=== PATIENT | female | born 1965 | race Native Hawaiian/Other Pacific Islander ===

== ENCOUNTER 2018-02-18 15:11 | Emergency (ER) | payer OTHER ==
[~2018-02-18] VITALS: Ht 162.6 cm; Wt 54.4 kg
[2018-02-18 15:44] LABS: PLATELET COUNT 218 K/uL (152-353)
[2018-02-18 15:54] LABS: POTASSIUM 3.7 mmol/L (3.6-5.2); SODIUM 139 mmol/L (136-145)
[2018-02-18 17:06] VITALS: BP 176/74; TEMP 97.3
== END 2018-02-18 17:15 | disposition home or self-care (01) ==
LOC: ED 15:11 → EDBD 15:11 → ED 17:15
PROVIDERS: Internal Medicine
DX: R11.2 Nausea with vomiting, unspecified (principal); R19.7 Diarrhea, unspecified; H53.8 Other visual disturbances; R06.02 Shortness of breath; E11.9 Type 2 diabetes mellitus without complications
CPT/HCPCS: 36415; 74022; 80053; 82150; 82550; 82553; 83690; 84484; 85027; 85379; 93005; 96372; 99283; J2550